=== PATIENT | female | born 1960 | race Caucasian/White ===

== ENCOUNTER → 2017-02-04 | Outpatient (CLI) | payer BC ==
[~2017-02-04] MED LIST: CHOL1000 PO; CYAN100020 PO; MULT-506 PO; RIVA1TAB4 PO; VITA400C15 PO
[2017-02-12 13:41] LABS: TESTOSTERONE,TOTAL 14 ng/dL (2-45)
[2017-02-13 15:27] LABS: ANA TITER 1:40 TITER (<1:40)
== END | disposition home or self-care (01) ==
LOC: C.LAB1850 12:38
PROVIDERS: ATTEND Dermatology
DX: L67.8 Other hair color and hair shaft abnormalities (principal); L65.9 Nonscarring hair loss, unspecified

== ENCOUNTER → 2017-02-09 | Outpatient (CLI) | payer BC ==
--- NOTE | 2017-02-09 11:13 | DIAGNOSTIC IMAGING REPORT ---
PELVIC ULTRASOUND, TRANSABDOMINAL AND TRANSVAGINAL HISTORY: L67.8 Abnormal facial hair L65.9 Hair [id number] COMPARISON: None. FINDINGS: Uterus: 5.5 x 3.4 x 2.3 cm. Trace fluid within the cervical canal. Endometrial stripe: 1 mm in thickness. Right ovary: Obscured by overlying bowel gas. Left ovary: Normal in size and demonstrates normal color flow. Miscellaneous:No pelvic free fluid. IMPRESSION: 1. Mildly atrophic uterus. 2. Normal left ovary. The right ovary was obscured by overlying bowel gas. Electronically signed by: Peewee Hutton M.D. 02/09/2017 11:12 AM Dictated Date/Time: 02/09/2017 11:10 AM
--- NOTE | 2017-02-10 07:49 | DIAGNOSTIC IMAGING REPORT ---
PELVIC ULTRASOUND, TRANSABDOMINAL AND TRANSVAGINAL HISTORY: L67.8 Abnormal facial hair L65.9 Hair [id number] COMPARISON: None. FINDINGS: Uterus: 5.5 x 3.4 x 2.3 cm. Trace fluid within the cervical canal. Endometrial stripe: 1 mm in thickness. Right ovary: Obscured by overlying bowel gas. Left ovary: Normal in size and demonstrates normal color flow. Miscellaneous:No pelvic free fluid. IMPRESSION: 1. Mildly atrophic uterus. 2. Normal left ovary. The right ovary was obscured by overlying bowel gas. Electronically signed by: Peewee Hutton M.D. 02/09/2017 11:12 AM Dictated Date/Time: 02/09/2017 11:10 AM
== END | disposition home or self-care (01) ==
LOC: C.ULTR 09:26
PROVIDERS: ATTEND Dermatology
DX: L67.8 Other hair color and hair shaft abnormalities (principal); L65.9 Nonscarring hair loss, unspecified

== ENCOUNTER → 2017-02-27 | Outpatient (CLI) | payer BC ==
[~2017-02-27] MED LIST changes: +GADAVIST IV PRN
--- NOTE | 2017-02-27 14:40 | DIAGNOSTIC IMAGING REPORT ---
PELVIC COMBO, ABDOMEN COMBO CLINICAL HISTORY: 57 years-old Female presenting with ABNORMAL FACIAL HAIR, HAIR THINNING. TECHNIQUE: Multisequence, multiplanar MR imaging of the abdomen and pelvis was performed before and after the administration of intravenous contrast. IV contrast: 10 mL of Gadavist. COMPARISON: Correlation made to ultrasound from 02/09/2017. FINDINGS: Lung bases: Lung bases clear. No pericardial or pleural effusion. Liver: Normal morphology. Hepatic fat fraction measures 9.6%, consistent with mild steatosis. Well-defined T2 hyperintense lesion at the right hepatic dome likely hepatic cyst or hamartoma. Patent hepatic vasculature. Biliary: No intrahepatic or extrahepatic biliary ductal dilatation. Normal gallbladder. Pancreas: Normal. Spleen: Normal. Adrenal glands: 10 mm left adrenal nodule with significant loss of signal on opposed phase imaging (signal intensity in phase 449, at a phase 248, adrenal signal intensity index 45%), indicating a lipid rich adenoma. Right adrenal gland normal. Kidneys and ureters: Subcentimeter intrinsically T1 hyperintense lesion in the interpolar region of the right kidney likely a hemorrhagic or proteinaceous cyst. Left kidney normal. No hydronephrosis. Gastrointestinal tract: Normal. No bowel obstruction. Peritoneal cavity: No free fluid or intraperitoneal gas. Vasculature: Aorta and IVC patent and normal in caliber. Lymph nodes: No enlarged lymph nodes in the abdomen or pelvis. Bladder: Normal. Pelvic organs: Uterus with diminutive intramural T2 hypointense fibroid at the fundus. Normal cervix. Normal ovaries. Abdominal wall: Normal. Musculoskeletal: Well-defined T2 hyperintense, T1 hyperintense lesion of L5 vertebral body consistent with benign hemangioma. Bone marrow signal intensity otherwise normal. IMPRESSION: 1. Mild hepatic steatosis. 2. 11 mm benign left adrenal adenoma. 3. Normal ovaries. Small fibroid at the uterine fundus. Electronically signed by: Xander Kimball 02/27/2017 2:39 PM Dictated Date/Time: 02/27/2017 2:16 PM
== END | disposition home or self-care (01) ==
LOC: C.MRI 12:34
PROVIDERS: ATTEND Dermatology
DX: L65.9 Nonscarring hair loss, unspecified (principal); L67.8 Other hair color and hair shaft abnormalities

== ENCOUNTER → 2017-03-12 | Outpatient (CLI) | payer BC ==
[~2017-03-12] MED LIST changes: -GADAVIST IV PRN
== END | disposition home or self-care (01) ==
LOC: C.PATHSPEC 13:36
PROVIDERS: ATTEND Dermatology
DX: L82.0 Inflamed seborrheic keratosis (principal)

== ENCOUNTER → 2017-07-31 | Outpatient (CLI) | payer BC | END | disposition home or self-care (01) | LOC: C.LABSPEC 18:11 | PROVIDERS: ATTEND Dermatology | DX: Z18.9 Retained foreign body fragments, unspecified material (principal) ==

== ENCOUNTER → 2017-08-19 | Outpatient (CLI) | payer BC ==
--- NOTE | 2017-08-19 16:46 | DIAGNOSTIC IMAGING REPORT ---
RIGHT SECOND FINGER RADIOGRAPHS CLINICAL HISTORY: Right second finger pain. Previous laceration. Possible foreign body. COMPARISON: None FINDINGS: No acute fracture is evident within the right second finger. There is no evidence for osteomyelitis. There is no definite radiopaque foreign body. A punctate radiodensity along the lateral aspect of the base of the middle phalanx of the right second finger is noted. This is of questionable significance. There is mild to moderate osteophytosis within the distal interphalangeal joint of the right second finger. IMPRESSION: 1. No acute fracture or evidence of osteomyelitis within the right second finger. 2. No definite radiopaque foreign body. Punctate radiodensity at the level of the middle phalanx of the right second finger is of doubtful significance. A tiny foreign body could appear similar although is considered unlikely. This could be correlated with site of laceration. Electronically signed by: Kenton Mcnair M.D. 08/19/2017 4:44 PM Dictated Date/Time: 08/19/2017 4:42 PM
== END | disposition home or self-care (01) ==
LOC: C.RAD1850 16:08
PROVIDERS: ATTEND Dermatology
DX: M79.641 Pain in right hand (principal)

== ENCOUNTER → 2017-11-23 | Outpatient (CLI) | payer BC, OTHER | END | disposition home or self-care (01) | LOC: C.LABSPEC 11:41 | PROVIDERS: ATTEND Obstetrics & Gynecology | DX: R10.2 Pelvic and perineal pain (principal) ==

== ENCOUNTER → 2017-11-24 | Outpatient (CLI) | payer BC ==
--- NOTE | 2017-11-24 07:43 | DIAGNOSTIC IMAGING REPORT ---
RIGHT INGUINAL ULTRASOUND FOR HERNIA EVALUATION CLINICAL HISTORY: R10.2 right-sided pelvic pain COMPARISON STUDY: No previous studies for comparison. FINDINGS: There is a small reducible fat-containing right inguinal hernia. IMPRESSION: Small reducible fat-containing right inguinal hernia. Electronically signed by: Geoffrey Yanes M.D. 11/24/2017 7:41 AM Dictated Date/Time: 11/24/2017 7:40 AM
== END | disposition home or self-care (01) ==
LOC: C.ULTR 06:59
PROVIDERS: ATTEND Obstetrics & Gynecology
DX: K40.90 Unilateral inguinal hernia, without obstruction or gangrene, not specified as recurrent (principal)